=== PATIENT | male | born 1950 | race Caucasian/White ===

== ENCOUNTER → 2019-05-16 | Outpatient (CLI) | payer MEDICARE ==
[~2019-05-16] MED LIST: REGADENOSON 0.4 MG/5 ML DISP.SYRIN. IV ONE
--- NOTE | 2019-05-17 15:10 | PCVCIMAG ---
APPROVED REPORT Imaging Protocol: Rest Tc-99m/Stress Tc-99m 1 day Study performed: 05/16/2019 11:41:00 Indication: Dyspnea, PAF Patient Location: Out-Patient Stress Nurse: Kassi Nunes RN, Marcela Funk RN ME Tech:BI Campbell Ht: 6 ft 2 in Wt: 250 lbs BSA: 2.39 m2 HR: 86 bpm BP: 134/66 mmHg BMI: 32.0 Rhythm: Sinus Rhythm, Non-specific T Wave Abnormality Medical History Medical History: Age, DM (insulin), Afib, Former Smoker, Aortic Valve Disease Medications: ASA, Atorvastatin, Losartan Allergies: Lanolin Pretest Chest Pain Characteristics: No chest pain Exercise History: Sedentary Resting Data Rest SPECT myocardial perfusion imaging was performed in supine position 45 minutes following the intravenous injection of 11.0 mCi of Tc-99m Sestamibi. Time of rest injection: 1025 Date: 05/16/2019 Administration Route: IV Administration Site: Left AC Pharmacologic Stress Pharmacologic stress test was performed by injecting Regadenoson 0.4 mg IV push over 10-15 seconds immediately followed by the intravenous injection of 30.7 mCi of Tc-99m Sestamibi. Time of stress injection: 1215 Date: 05/16/2019 Administration Route: IV Administration Site: Left AC Gated Stress SPECT was performed 45 minutes after stress injection. The images were gated to evaluate regional wall motion and calculate left ventricular ejection fraction. Stress Test Details Stress Test: Pharmacologic stress testing performed using 0.4 mg of regadenoson per 5 mL given IV over 10 seconds. Reason for pharmacologic stress test: uses walker/wheelchair. HRMax Heart Rate (APMHR): 153 bpm Resting HR: 86 bpmTarget HR (85% APMHR): 130 bpm Max HR Achieved: 106 bpm % of APMHR: 69 Recovery HR: 103 bpm BP Resting BP: 134/66 mmHg Max BP: 103/58 mmHg Recovery BP: 106/74 mmHg ECG Resting ECG: Sinus Rhythm, Non-specific T Wave Abnormality Stress ECG: Sinus Tachycardia, Non-specific T Wave Abnormality Arrhythmia: VPC's Recovery ECG: Sinus Tachycardia, Non-specific T Wave Abnormality Clinical Reason for Termination: Completed protocol Stress Symptoms: Dyspnea, Dizzy Exercise duration: min 55 sec Symptoms resolved with caffeine. Stress ECG Conclusion 1. adequate response to iv lexiscan 2. onadequate heart rate for ecg diagnosis Study Data Post stress, the left ventricular ejection was 52%.. SSS: 1 SRS: 1 SDS: 0 TID = 1.07. Perfusion There is a large area of moderately reduced uptake in the basal and mid segment of the inferior wall which is seen on the stress images as well as the resting images. This area thickens and moves normally and is most consistent with attenuation artifact. Wall Motion Normal left ventricular wall motion. Nuclear Conclusion ECG Findings: non-diagnostic Clinical Findings: negative for ischemia Nuclear Findings: negative for ischemia Exercise Capacity: not assessed Left Ventricular Function: normal 1. low risk study 2. post stress lvef: 52% without wall motion abnormalities Interpreted by: Carissa Fernández MD Electronically Approved: 05/17/2019 15:10:38 <Conclusion> 1. adequate response to iv lexiscan 2. onadequate heart rate for ecg diagnosis
== END | disposition home or self-care (01) ==
LOC: PCVCIMAG 09:57
PROVIDERS: ATTEND Internal Medicine
DX: Z01.810 Encounter for preprocedural cardiovascular examination (principal); I48.0 Paroxysmal atrial fibrillation; R06.00 Dyspnea, unspecified; I35.0 Nonrheumatic aortic (valve) stenosis
CPT/HCPCS: 78452; 93017; A9500; J2785